=== PATIENT | female | born 1940 | race Two or more races ===

== ENCOUNTER 2016-12-16 14:26 | Inpatient (IN) | payer OTHER ==
[~2016-12-16] VITALS: Ht 170.2 cm; Wt 83.7 kg
[2016-12-16] MEDS ORDERED: GOOD SENSE ASP325 MG PO (17:03)
[2016-12-16 18:19] VITALS: BP 155/76
[2016-12-16 19:14] LABS: PHOSPHOROUS 3.2 mg/dL (2.5-4.9)
[2016-12-16 19:16] LABS: CHOLESTEROL/HDL RATIO 1.6
[2016-12-16 19:37] LABS: FREE T4 0.97 ng/dL (0.76-1.46); FREE THYROXINE INDEX 2.9 ug/dL (1.4-4.5); T4(THYROXINE) 7.6 ug/dL (4.7-13.3)
[2016-12-16 19:45] LABS: T3 TOTAL 0.75 ng/mL
[2016-12-16 20:46] VITALS: BP 150/77
[2016-12-16 21:27] VITALS: BP 144/73
[2016-12-16 22:03] LABS: UA SPECIFIC GRAVITY <=1.005 (1.005-1.035); microscopic required? YES
[2016-12-16 22:08] LABS: urine erythrocyte 1+ (NEGATIVE)
[2016-12-17 00:04] LABS: CALCIUM 8.5 mg/dL (8.5-10.1); CARBON DIOXIDE 25.8 mmol/L (21-32); CHLORIDE SERUM 102 mmol/L (98-107); CREATININE SERUM 0.8 mg/dL (0.6-1.0); GLUCOSE SERUM 84 mg/dL (74-106); POTASSIUM SERUM 3.9 mmol/L (3.5-5.1); SODIUM SERUM 138 mmol/L (136-145)
[2016-12-17 01:10] LABS: RED CELL DISTRIBUTION WIDTH 13.3 % (11.5-14.5)
[2016-12-17 01:42] LABS: BASOPHIL % 0.1 % (0-2); PLATELET COUNT 200 x10^3mcL (130-400)
[2016-12-17 05:27] VITALS: BP 134/74
[2016-12-17 06:54] LABS: BASOPHIL % 0.3 % (0-2); PLATELET COUNT 188 x10^3mcL (130-400); RED CELL DISTRIBUTION WIDTH 13.4 % (11.5-14.5)
[2016-12-17 07:32] LABS: CALCIUM 8.2 mg/dL (8.5-10.1); CARBON DIOXIDE 26.4 mmol/L (21-32); CHLORIDE SERUM 103 mmol/L (98-107); CREATININE SERUM 0.7 mg/dL (0.6-1.0); GLUCOSE SERUM 86 mg/dL (74-106); MAGNESIUM 2.1 mg/dL (1.8-2.4); PHOSPHOROUS 3.4 mg/dL (2.5-4.9); POTASSIUM SERUM 3.7 mmol/L (3.5-5.1); SODIUM SERUM 139 mmol/L (136-145)
[2016-12-17 10:15] VITALS: BP 137/72
[2016-12-17 21:52] VITALS: BP 134/77
[2016-12-18 06:11] VITALS: BP 146/83
[2016-12-18 07:05] LABS: CALCIUM 8.4 mg/dL (8.5-10.1); CARBON DIOXIDE 27.1 mmol/L (21-32); CHLORIDE SERUM 104 mmol/L (98-107); CREATININE SERUM 0.7 mg/dL (0.6-1.0); GLUCOSE SERUM 91 mg/dL (74-106); POTASSIUM SERUM 4.2 mmol/L (3.5-5.1); SODIUM SERUM 137 mmol/L (136-145)
[2016-12-18 07:15] LABS: BASOPHIL % 0.3 % (0-2); PLATELET COUNT 173 x10^3mcL (130-400); RED CELL DISTRIBUTION WIDTH 13.3 % (11.5-14.5)
[2016-12-18 09:40] VITALS: BP 150/80
[2016-12-18 13:10] VITALS: BP 124/73
[2016-12-18 16:59] VITALS: BP 137/72
[2016-12-18 22:15] VITALS: BP 135/70
[2016-12-19 05:36] VITALS: BP 140/62
[2016-12-19 06:15] LABS: BASOPHIL % 0.5 % (0-2); PLATELET COUNT 168 x10^3mcL (130-400); RED CELL DISTRIBUTION WIDTH 13.5 % (11.5-14.5)
[2016-12-19 09:00] VITALS: BP 117/66
[2016-12-19 13:50] VITALS: BP 117/64
[2016-12-19 17:02] VITALS: BP 134/78
[2016-12-19 21:02] VITALS: BP 121/72
[2016-12-20 05:29] VITALS: BP 136/70
[2016-12-20 07:44] LABS: CARBON DIOXIDE 25.9 mmol/L (21-32); CHLORIDE SERUM 106 mmol/L (98-107); CREATININE SERUM 0.6 mg/dL (0.6-1.0); GLUCOSE SERUM 79 mg/dL (74-106); MAGNESIUM 1.6 mg/dL (1.8-2.4); PHOSPHOROUS 3.5 mg/dL (2.5-4.9); POTASSIUM SERUM 3.6 mmol/L (3.5-5.1); SODIUM SERUM 138 mmol/L (136-145)
[2016-12-20 08:00] LABS: BASOPHIL % 0.4 % (0-2); PLATELET COUNT 173 x10^3mcL (130-400); RED CELL DISTRIBUTION WIDTH 12.9 % (11.5-14.5)
[2016-12-20 11:30] VITALS: BP 134/72
[2016-12-20 15:14] VITALS: BP 122/68
[2016-12-20 17:59] VITALS: BP 146/73
[2016-12-20 21:40] VITALS: BP 129/63
[2016-12-21 05:25] VITALS: BP 139/73
[2016-12-21 07:28] LABS: CHLORIDE SERUM 108 mmol/L (98-107); CREATININE SERUM 0.6 mg/dL (0.6-1.0); GLUCOSE SERUM 84 mg/dL (74-106); MAGNESIUM 1.7 mg/dL (1.8-2.4); PHOSPHOROUS 3.8 mg/dL (2.5-4.9); POTASSIUM SERUM 3.7 mmol/L (3.5-5.1); SODIUM SERUM 142 mmol/L (136-145)
[2016-12-21 07:50] LABS: BASOPHIL % 0.7 % (0-2); PLATELET COUNT 181 x10^3mcL (130-400); RED CELL DISTRIBUTION WIDTH 13.2 % (11.5-14.5)
[2016-12-21 09:40] VITALS: BP 131/61
[2016-12-21] MEDS ORDERED: COL100 PO (14:15)
[2016-12-21] MEDS ORDERED: NORCO1 TA2 PO (14:16)
[2016-12-21 16:24] VITALS: BP 131/61
[2016-12-21 16:30] VITALS: BP 142/81
== END 2016-12-21 17:45 | disposition home health service (06) | DRG 481 ==
LOC: ED 14:26 → DU 16:58 → MU 12-20 15:52
PROVIDERS: Family Medicine Sports Medicine; Neuromusculoskeletal Medicine, Sports Medicine; ADMIT Family Medicine
PROC: 0QS704Z Reposition Left Upper Femur with Internal Fixation Device, Open Approach (ICD-10-PCS; principal; 2016-12-17 13:30)
DX: S72.012A Unspecified intracapsular fracture of left femur, initial encounter for closed fracture (principal); E44.0 Moderate protein-calorie malnutrition; E83.51 Hypocalcemia; E78.5 Hyperlipidemia, unspecified; D53.9 Nutritional anemia, unspecified; F17.210 Nicotine dependence, cigarettes, uncomplicated; Z68.21 Body mass index [BMI] 21.0-21.9, adult; W18.39XA Other fall on same level, initial encounter; Y92.511 Restaurant or cafe as the place of occurrence of the external cause
CPT/HCPCS: 76001; 83880; 84439; 97110-GP; 97116-GP; 97530-GP; C1713; J0690; J1170; J1644; J2001; J2270; J2405; J2704; J3010; J3490; J7030; J7120

== ENCOUNTER → 2017-02-01 | Outpatient (CLI) | payer OTHER ==
[~2017-02-01] MED LIST: COL100 PO; GOOD SENSE ASP325 MG PO; NORCO1 TA2 PO
== END | disposition home or self-care (01) ==
LOC: RD 10:00
DX: S72.002D Fracture of unspecified part of neck of left femur, subsequent encounter for closed fracture with routine healing (principal); X58.XXXD Exposure to other specified factors, subsequent encounter

== ENCOUNTER → 2017-03-08 | Outpatient (CLI) | payer OTHER | END | disposition home or self-care (01) | LOC: RD 09:29 | DX: S72.002D Fracture of unspecified part of neck of left femur, subsequent encounter for closed fracture with routine healing (principal); X58.XXXD Exposure to other specified factors, subsequent encounter ==

== ENCOUNTER → 2017-05-14 | Outpatient (CLI) | payer OTHER | END | disposition home or self-care (01) | LOC: RD 08:10 | DX: S72.002D Fracture of unspecified part of neck of left femur, subsequent encounter for closed fracture with routine healing (principal); X58.XXXD Exposure to other specified factors, subsequent encounter ==

== ENCOUNTER 2018-11-05 19:21 | Emergency (ER) | payer OTHER ==
[~2018-11-05] VITALS: Ht 170.2 cm; Wt 62.6 kg
[2018-11-05 19:46] VITALS: Ht 170.2 cm; Wt 62.6 kg
[2018-11-05 21:02] VITALS: BP 130/71
== END 2018-11-05 21:13 | disposition home or self-care (01) ==
LOC: ED 19:21
DX: S01.111A Laceration without foreign body of right eyelid and periocular area, initial encounter (principal); S09.90XA Unspecified injury of head, initial encounter; F17.210 Nicotine dependence, cigarettes, uncomplicated; W18.30XA Fall on same level, unspecified, initial encounter; Y93.89 Activity, other specified; Y92.89 Other specified places as the place of occurrence of the external cause; Y99.8 Other external cause status
CPT/HCPCS: 90715; 99406; J2001